=== PATIENT | male | born 1950 | race Caucasian/White ===

== ENCOUNTER 2018-06-24 05:53 | Observation (INO) | payer OTHER ==
[2018-06-23 08:37] LABS: BASOPHILS % 0.7 % (0.0-1.0); EOSINOPHILS # (AUTO) 0.2 (0.0-0.4); EOSINOPHILS % 4.9 % (0.0-6.0); HEMOGLOBIN 15.2 g/dL (14.0-18.0); MEAN CORPUSCULAR HEMOGLOBIN 31.9 pg (28-32); MEAN CORPUSCULAR VOLUME 96.6 fL (81-99); MONOCYTES # (AUTO) 0.4 (0.2-0.8); MONOCYTES % 9.3 % (4.4-11.3); NEUTROPHILS # (AUTO) 2.5 (2.1-6.9); NEUTROPHILS % 61.1 % (38.7-80.0); PLATELET COUNT 190 x10e3/uL (140-360); RED BLOOD COUNT 4.76 x10e6/uL (4.3-5.7); RED CELL DISTRIBUTION WIDTH 12.1 % (11.7-14.4)
[2018-06-23 08:47] LABS: INR 0.87; PROTHROMBIN TIME 12.6 seconds (11.9-14.5)
[2018-06-23 08:48] LABS: PARTIAL THROMBOPLASTIN TIME 28.8 seconds (23.8-35.5)
--- NOTE | 2018-06-23 08:49 | Diagnostic Imaging Report ---
PROCEDURE: X-RAY CHEST, TWO VIEWS COMPARISON: None. INDICATIONS: PRE OPERATIVE CHEST X-RAY FOR NECK SURGERY FINDINGS: LUNGS: No consolidations or edema. PLEURA: No effusions or pneumothorax. HEART \T\ MEDIASTINUM: The heart is within normal size-limits. BONES \T\ SOFT TISSUES: No acute findings. [place] screws overlie the right humeral head. Anterior compression plate with screws overlying the lower cervical spine. Mild degenerative changes of the lower thoracic spine. CONCLUSION: No acute thoracic abnormality. Raf Russell D.O. Dictated by: Raf Russell D.O. on 06/23/2018 at 8:57 Electronically approved by: Raf Russell D.O. on 06/23/2018 at 8:57
[2018-06-23 08:54] LABS: ANION GAP 15.4 mmol/L (8-16); BLOOD UREA NITROGEN 12 mg/dL (7-26); BUN/CREATININE RATIO 14 (6-25); CALCIUM 9.9 mg/dL (8.4-10.2); CARBON DIOXIDE 27 mmol/L (22-29); CHLORIDE 108 mmol/L (98-107); CREATININE, SERUM 0.86 mg/dL (0.72-1.25); EST GLOMERULAR FILTRATION RATE > 60 ML/MIN (60-); GLUCOSE 115 mg/dL (74-118); SODIUM 145 mmol/L (136-145)
[2018-06-23 08:57] LABS: POTASSIUM 5.4 mmol/L (3.5-5.1)
[~2018-06-24] VITALS: Ht 177.8 cm; Wt 99.3 kg
[~2018-06-24 05:53] MED LIST: CELEBREX200 MG; FOLIC ACID1 MG PO; VITAMIN D400 UNIT PO
[2018-06-24] MEDS ORDERED: CEFAZOLIN SOD 1 GM VIAL ONE (06:31)
[2018-06-24] MEDS ORDERED: THROMBIN FOR SOLN 5,000 UNIT VIAL ONE (07:30)
[2018-06-24] MEDS ORDERED: BUPIVACAINE 0.5%/EPI 30 ML SDV INJ ONE (07:30)
[2018-06-24] MEDS ORDERED: GELATIN SPONGE 12-7MM ONE (07:30)
[2018-06-24] MEDS ORDERED: BACITRACIN 50,000 UNIT VIAL ONE (07:31)
[2018-06-24] MEDS ORDERED: ACETAMINOPHEN 1000 MG/100 ML 100 ML IV ONE (07:33)
[2018-06-24] MEDS ORDERED: LIDOCAINE HCL (LTA) 4 ML SOLN ONE (07:33)
[2018-06-24] MEDS ORDERED: CARISOPRODOL 350 MG TAB PO PRN (09:30)
[2018-06-24] MEDS ORDERED: ACETAMINOPHEN 325 MG TAB PO PRN (09:30)
[2018-06-24] MEDS ORDERED: PROMETHAZINE HCL (IM) 25 MG/ML VIAL IM PRN (09:30)
[2018-06-24] MEDS ORDERED: MORPHINE SULFATE 5 MG/ML VIAL IM PRN (09:30)
[2018-06-24] MEDS ORDERED: MAGNESIUM/ALUMINUM/SIMETHICONE 30 ML UDC PO PRN (09:30)
[2018-06-24] MEDS ORDERED: HYDROMORPHONE 2MG/ML 2 MG/ML ML IV PRN (09:30)
[2018-06-24] MEDS ORDERED: ZOLPIDEM TARTRATE 5 MG TAB PO PRN (09:30)
[2018-06-24] MEDS ORDERED: ONDANSETRON HCL INJ 2 MG/ML VIAL IV PRN (09:30)
[2018-06-24] MEDS ORDERED: FENTANYL CITRATE/PF 100MCG/2 ML INJ ONE ×2 (09:47→18:20)
[2018-06-24 10:35] VITALS: BP 125/87
--- NOTE | 2018-06-24 10:35 | Operative Report ---
DATE OF PROCEDURE: June 24, 2018 PREOPERATIVE DIAGNOSIS: C4-5 disk herniation and spondylosis above the level of previous fusion, M50.121. POSTOPERATIVE DIAGNOSIS: C4-5 disk herniation and spondylosis above the level of previous fusion, M50.121. PROCEDURES: 1. C4-5 anterior cervical diskectomy and microsurgical osteophyte resection and allograft fusion, 37294. 2. Preparation of MTF cortical cancellous allograft, 98268. 3. C4-5 anterior cervical plating with Synthes ZPN plate, 69470. ANESTHESIA: General. INDICATIONS: The patient is a 67-year-old man who has previously had C5-6 and C6-7 ACDF and plating by la in the distant past. He now presents with C4-5 spondylosis and disk herniation and left foraminal stenosis due to uncinate hypertrophy above the level of the previous fusion symptomatic with left C5 radiculopathy, was taken to the operating room for C4-5 anterior cervical decompression and fusion. DESCRIPTION OF PROCEDURE: After induction of general anesthesia, the patient was placed on the operating table in supine position. The right side of the neck was prepped and draped in sterile fashion. The fluoroscopic C-arm was positioned in cross-table lateral orientation. A transverse incision was created on right side of the neck superimposed on the C4-5 disk space as determined by fluoroscopy. The platysma was divided in line with the incision. The subplatysmal dissection was carried out. An avascular plane of dissection was developed medial to the sternocleidomastoid muscle and was followed medial to the carotid sheath to the anterior border of the cervical spine. The deep cervical fascia was opened. The esophagus was retracted to the left. The attachments of longus colli muscles to the anterolateral aspects of vertebral bodies of C4 and C5 were divided. The anterior longitudinal ligament was resected. Fonda posts were inserted into C4 and C5, and a Fonda distractor was used to distract the disk space. The anterior annulus of the disk was incised with a #11 blade, and the contents of the disk were thoroughly evacuated with angled curettes and pituitary rongeurs. The posterior osteophytes were meticulously drilled with a 2-mm cutting bur on a high-speed drill until they were completely removed. The posterior annulus of the disk, herniated disk material, and the posterior longitudinal ligament were resected layer by layer until the dura was fully exposed and decompressed. The medial aspects of the uncinate processes were resected bilaterally to further expose and decompress the origins of the corresponding nerve roots. After satisfactory decompression had been achieved, the endplates were prepared for fusion. A piece of MTF cortical cancellous allograft measuring 9 mm in height was selected and prepared in saline and loaded onto a Synthes ZPN plate. The construct was then inserted into the C4-5 disk space under distraction and fluoroscopic guidance and tamped in place until the anterior margin of the plate was flushed with the anterior margin of the vertebral bodies. The plate was then secured to the endplates of C4 and C5 with 2 pairs of 14-mm screws. All screws were locked and excellent construct was obtained. The wound was copiously irrigated with bacitracin solution. Meticulous hemostasis was secured. Retractor was removed. The platysma was closed with 3-0 Vicryl sutures. The skin was closed with 4-0 Monocryl sutures in a subcuticular fashion. Steri-Strips and a dressing were applied. The patient was awakened, extubated, and taken to postanesthesia care unit in stable condition. No intraoperative complications were encountered. Estimated blood loss was 20 mL. Job#: [id number]
[2018-06-24 10:59] VITALS: BP 125/87
[2018-06-24] MEDS: OXYCODONE/ACETAMINOPHEN 5-325 1 EACH TABLET PO PRN ×2 (11:45→22:27)
[2018-06-24 11:50] VITALS: BP 137/88
[2018-06-24] MEDS: LACTATED RINGER'S 1,000 ML IV SCH ×2 (12:05→17:45)
[2018-06-24] MEDS ORDERED: CEFAZOLIN SOD 1 GM/D5W 50ML 50 ML IV SCH (14:00)
[2018-06-24] MEDS: CEFAZOLIN SOD 1 GM VIAL IV SCH ×2 (14:48→22:20)
[2018-06-24 16:11] VITALS: BP 125/66
[2018-06-24] MEDS ORDERED: NEOSTIGMINE 5 MG/5ML SYR ONE (17:56)
[2018-06-24] MEDS ORDERED: ONDANSETRON HCL INJ 2 MG/ML VIAL ONE (17:56)
[2018-06-24] MEDS ORDERED: GLYCOPYRROLATE INJ 1MG/ 5 ML SYR ONE (17:56)
[2018-06-24] MEDS ORDERED: SEVOFLURANE INHAL SOLN 250 ML PEN BTL ONE (17:56)
[2018-06-24] MEDS ORDERED: KETOROLAC TROMETHAMINE 30 MG/ML VIAL ONE (17:56)
[2018-06-24] MEDS ORDERED: LIDOCAINE HCL 2% LOCAL INJ 5 ML SDV VIAL INJ ONE (17:56)
[2018-06-24] MEDS ORDERED: ROCURONIUM BROMIDE 10 MG/ML 5ML VIAL ONE (17:56)
[2018-06-24] MEDS ORDERED: PROPOFOL IV EMULSION 10 MG/ML 20 ML VIAL ONE (17:56)
[2018-06-24] MEDS ORDERED: LIDOCAINE HCL 2% JELLY 5 ML TUBE ONE (17:56)
[2018-06-24] MEDS ORDERED: DEXAMETHASONE SOD PHOS INJ 4 MG/ML VIAL ONE (17:56)
[2018-06-24] MEDS ORDERED: MIDAZOLAM HCL 2 MG/2 ML VIAL ONE (18:20)
[2018-06-24 20:00] VITALS: BP 131/65
[2018-06-25] VITALS: BP 121/62
[2018-06-25] MEDS: LACTATED RINGER'S 1,000 ML IV SCH (02:05)
[2018-06-25 04:00] VITALS: BP 122/59
[2018-06-25] MEDS: CEFAZOLIN SOD 1 GM VIAL IV SCH (05:39)
[2018-06-25 08:11] VITALS: BP 137/69
[2018-06-25] MEDS ORDERED: NORCO 7.5-3251 EACH PO (08:11)
--- NOTE | 2018-06-25 08:49 | Diagnostic Imaging Report ---
Cervical spine radiographs- 3 views HISTORY: Status post surgery. COMPARISON: MRI cervical spine 07/22/2012. FINDINGS: There are post surgical changes related to cervical fusion from C4-C5 with intervertebral body graft, and anterior plate and bilateral screws. There is additional fixation from C5-C7 with anterior plate and bilateral screw construct. Hardware appears grossly intact. Alignment is maintained. No evidence of fracture. Multilevel degenerative disc and facet degenerative changes. IMPRESSION: Post surgical changes status post cervical spin fixation as above. Intact hardware with unremarkable alignment. Signed by: Dr. Logan Hoff MD on 06/25/2018 8:46 AM
[2018-06-25 09:38] VITALS: BP 137/69
[2018-06-25] MEDS: OXYCODONE/ACETAMINOPHEN 5-325 1 EACH TABLET PO PRN (10:00)
[2018-06-25] MEDS ORDERED: INFLUENZA VIRUS VAC SPLIT INJ 0.5 ML SYR IM NR (10:00)
--- OUTSIDE RECORDS SUMMARY | 2018-06-29 12:54 | XMS REPORT ---
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
--- OUTSIDE RECORDS SUMMARY | 2018-06-29 12:54 | XMS REPORT ---
Author Author Radha Cagle [facility] eClinical[employer] Address Unknown Phone Unavailable Care Team Providers Care Costumed Character Entertainer Name Role Phone Radha Cagle Unavailable Encounters Encounter Location Date URINE [facility] Aug 04, 2013 pre op clearance [facility] February 15, 2014 NV/TDAP [facility] February 13, 2014 knee [facility] Jul 18, 2013 Follow-Up [facility] Aug 25, 2013 Test results [facility] Aug 29, 2013 Problems Problem Type Condition ICD-9 Code Onset Dates Condition Status Problem GERD (gastroesophageal reflux disease) 530.81 Active Problem Polymyalgia rheumatica 725 Active Problem 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 02/2014February 15, 2014 Depression Screening: . 02/2014February 15, 2014 Flu Vaccine: . 2012February 15, 2014 Last Bone Density: . 2011February 15, 2014 Last Colonoscopy: . 01/2014February 15, 2014 children . 2 February 15, 2014 Tobacco Use: . Are you a: current smoker rare- 2-4 cig/wk February 15, 2014 Marital Status: . Tia February 15, 2014 Do you drink alcohol? . 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
--- OUTSIDE RECORDS SUMMARY | 2018-06-29 12:54 | XMS REPORT ---
Author Author Imani Alexandre [facility] [place] eClinicalWorks Address Unknown Phone Unavailable Care Team Providers Care Caddymaster Name Role Phone Imani Alexandre CP Unavailable Allergies, Adverse Reactions, Alerts Substance Reaction Event Type Codeine Sulfate nausea Drug Allergy Encounters Encounter Location Date URINE [facility] Aug 04, 2013 pre op clearance [facility] February 15, 2014 NV/TDAP [facility] February 13, 2014 left shoulder pain [facility] Jul 31, 2015 knee [facility] Jul 18, 2013 Follow-Up [facility] Aug 25, 2013 Test results [facility] Aug 29, 2013 Problems Problem Type Condition ICD-9 Code Onset Dates Condition Status Problem GERD (gastroesophageal reflux disease) 530.81 Active Problem Polymyalgia rheumatica 725 Active Problem 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 Assessment Shoulder pain, left M25.512 Active Assessment Leg wound, left S81.802A Active Problem Nicotine abuse 305.1 Active Assessment Shoulder pain, right M25.511 Active Medications Medication Code System Code Instructions Start Date End Date Status [facility]osage [facility] [address]-37 200 MG Orally Once a day Active 1 capsule Ambien [facility] [address]-50 10 mg Orally Once a day PRN Aug 04, 2013 Active 1 tablet at bedtime as needed Methotrexate [facility] [address]-10 2.5 MG Orally Three times a Week Active 1 tablet Folic Acid [facility] [address]-53 400 MCG Orally Once a day Active 1 tablet Vitamin D [facility] [address]-17 2000 UNIT Orally Active as directed Tramadol & Dietary Manage Prod Unknown 0 50 mg Orally twice a day (bid) Active 1 capsule Ibuprofen [facility] [address]-82 800 MG Orally as needed (prn) Sep 29, 2015 Active 1 tablet Social History Social History Element Qualifiers Date Reported Fall Risk: . 02/2014Jul 31, 2015 Depression Screening: . 02/2014Jul 31, 2015 Flu Vaccine: . 2014Jul 31, 2015 Last Bone Density: . 2011Jul 31, 2015 Last Colonoscopy: . 01/2014Jul 31, 2015 children . 2 Jul 31, 2015 Tobacco Use: . Are you a: current smoker rare- 2-4 cig/wk Jul 31, 2015 Marital Status: . Tia Jul 31, 2015 Do you drink alcohol? . 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, 2015 Family history Qualifier Description Comment Date Reported Maternal Grandmother Comment not available Jul 31, 2015 Paternal Grandmother Comment not available Jul 31, 2015 Siblings Comment not available Jul 31, 2015 Maternal Grandfather Comment not available Jul 31, 2015 Children Comment not available Jul 31, 2015 Father alive diabetes, hypertension Jul 31, 2015 Paternal Grandfather Comment not available Jul 31, 2015 Mother Comment not available Jul 31, 2015 Other: Comment not available Jul 31, 2015 Vital Signs Date/Time: Jul 31, 2015 Blood Pressure Diastolic 70 mm Hg Blood Pressure Systolic 118 mm Hg Height 70 in Cardiac Monitoring Heart Rate 70 /min Results X ray : Shoulder, right Summary Purpose eClinicalWorks Submission
--- OUTSIDE RECORDS SUMMARY | 2018-06-29 12:54 | XMS REPORT ---
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 Problem GERD (gastroesophageal reflux disease) 530.81 Active Problem Polymyalgia rheumatica 725 Active Problem 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 Assessment Left knee pain 719.46 Active Assessment Ingram's cyst of knee 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.51 Active Problem Nicotine abuse 305.1 Active Assessment Leg edema, left 782.3 Active Medications Medication Code System Code Instructions Start Date End Date Status Dosage Ibuprofen [facility] [address]-09 800 MG Orally as needed (prn) Active 1 tablet Vitamin D [facility] [address]-35 2000 UNIT Orally Active as directed Ketorolac Tromethamine [facility] [address]-35 0.4 % Ophthalmic three times a day (tid) Active 1 drop Valacyclovir HCl [facility] [address]-12 500 mg Orally every 12 hrs as needed Jul 18, 2013 January 14, 2014 Active 2 tablets Methotrexate [facility] [address]-17 2.5 MG Orally Three times a Week Active 1 tablet Social History Social History Element Qualifiers Date Reported children . 2 Jul 18, 2013 Tobacco Use: . Are you a: current smoker rare- 2-4 cig/wk Jul 18, 2013 Marital Status: . Tia Jul 18, 2013 Do you drink alcohol? . 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
--- OUTSIDE RECORDS SUMMARY | 2018-06-29 12:54 | XMS REPORT ---
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 Assessment Gastroesophageal reflux disease, esophagitis presence not specified K21.9 Active Assessment Flu-like symptoms R68.89 Active Problem Osteoarthritis, unspecified osteoarthritis type, unspecified site M19.90 Active Problem 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 Problem Uveitis H20.9 Active Problem Tobacco use Z72.0 Active Assessment Polymyalgia rheumatica M35.3 Active Problem Polymyalgia rheumatica M35.3 Active Problem 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 Medications Medication Code System Code Instructions Start Date End Date Status Dosage Celebrex [facility] [address]-53 200 MG Orally Once a day Active 1 capsule Folic Acid [facility] [address]-05 400 MCG Orally Once a day Active 1 tablet Methotrexate [facility] [address]-26 2.5 MG Orally Three times a Week Active 1 tablet Ambien [facility] [address]-91 10 mg Orally Once a day PRN Aug 04, 2013 Active 1 tablet at bedtime as needed ProAir HFA [facility] [address]-75 108 (90 Base) MCG/ACT Inhalation every 4 hrs Jun 09, 2016 Active 2 puffs as needed Bromfed DM [facility] [address]-68 30-2-10 MG/5ML Orally every 4-6 hrs PRN January 22, 2017 January 29, 2017 Active 10 ml as needed Vitamin D [facility] [address]-27 2000 UNIT Orally Active as directed Tramadol & Dietary Manage Prod NDC 0 50 mg Orally twice a day (bid) Active 1 capsule Vital Signs Date/Time: January 22, 2017 BMI 31.13 Index Weight 217 lbs Height 70 in Temperature 98.3 F Cardiac Monitoring Heart Rate 66 /min Blood Pressure Diastolic 70 mm Hg Blood Pressure Systolic 110 mm Hg Results Name Result Date Reference Range Unit Abnormality Flag RAPID FLU ----Result negative [id number] Summary Purpose eClinicalWorks Submission
--- OUTSIDE RECORDS SUMMARY | 2018-06-29 12:54 | XMS REPORT ---
Author Author Amanda Manrique [facility] eClinicalWorks Address Unknown Phone Unavailable Care Team Providers Care Control Room Operator Name Role Phone Amanda Manrique CP Unavailable Allergies, Adverse Reactions, Alerts Substance Reaction Event Type Codeine Sulfate nausea Drug Allergy Encounters Encounter Location Date knee [facility] Jul 18, 2013 Follow-Up [facility] Aug 25, 2013 Problems Problem Type Condition ICD-9 Code Onset Dates Condition Status Problem GERD (gastroesophageal reflux disease) 530.81 Active Problem Polymyalgia rheumatica 725 Active Problem 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 [address]-05 10 mg Orally Once a day PRN Aug 04, 2013 Active 1 tablet at bedtime as needed Valacyclovir HCl [facility] [address]-56 500 mg Orally every 12 hrs as needed Jul 18, 2013 January 14, 2014 Active [address] [facility] [address]-96 800 MG Orally as needed (prn) Active [address] [facility] [address]-50 2000 UNIT Orally Active as directed Methotrexate [facility] [address]-94 2.5 MG Orally Three times a Week Active 1 tablet Social History Social History Element Qualifiers Date Reported children . 2 Aug 25, 2013 Tobacco Use: . Are you a: current smoker rare- 2-4 cig/wk Aug 25, 2013 Marital Status: . Tia Aug 25, 2013 Do you drink alcohol? . 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
--- OUTSIDE RECORDS SUMMARY | 2018-06-29 12:54 | XMS REPORT ---
Author Stephane Blair Organization eClinicalWorks Address Unknown Phone Unavailable Care Team Providers Care Communications Director Name Role Phone Stephane Cuellar CP Unavailable Allergies, Adverse Reactions, Alerts Substance Reaction Event Type Codeine Sulfate nausea Drug Allergy Encounters Encounter Location Date URINE [facility] Aug 04, 2013 knee [facility] Jul 18, 2013 Follow-Up [facility] Aug 25, 2013 Test results [facility] Aug 29, 2013 Problems Problem Type Condition ICD-9 Code Onset Dates Condition Status Problem GERD (gastroesophageal reflux disease) 530.81 Active Problem Polymyalgia rheumatica 725 Active Problem 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 Assessment Insomnia 780.52 Active Problem Nicotine abuse 305.1 Active Assessment UTI (urinary tract infection) 599.0 Active Medications Medication Code System Code Instructions Start Date End Date Status Dosage Tramadol & Dietary Manage Prod [facility] 96850 50 mg Orally twice a day (bid) Active 1 capsule Ambien [facility] [address]-47 10 mg Orally Once a day PRN Aug 04, 2013 Active 1 tablet at bedtime as needed Valacyclovir HCl [facility] [address]-01 500 mg Orally every 12 hrs as needed Jul 18, 2013 January 14, 2014 Active 2 tablets Ibuprofen [facility] [address]-45 800 MG Orally as needed (prn) Active 1 tablet Vitamin D [facility] [address]-07 2000 UNIT Orally Active as directed Methotrexate [facility] [address]-77 2.5 MG Orally Three times a Week Active 1 tablet Uribel [facility] [address]-82 118 MG Orally Four times a day Aug 04, 2013 Active 1 capsule Levaquin [facility] [address]-33 500 mg Orally Once a day Aug 04, 2013 Aug 14, 2013 Active 1 tablet Social History Social History Element Qualifiers Date Reported children . 2 Aug 04, 2013 Tobacco Use: . Are you a: current smoker rare- 2-4 cig/wk Aug 04, 2013 Marital Status: . Tia Aug 04, 2013 Do you drink alcohol? . 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
--- OUTSIDE RECORDS SUMMARY | 2018-06-29 12:54 | XMS REPORT ---
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 Problem 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 Problem Polymyalgia rheumatica M35.3 Active Problem Osteoarthritis, unspecified osteoarthritis type, unspecified site M19.90 Active Medications Medication Code System Code Instructions Start Date End Date Status Dosage Methotrexate [facility] 81946188559 2.5 MG Orally Three times a Week Active 1 tablet Folic Acid [facility] 07999224685 400 MCG Orally Once a day Active 1 tablet Celebrex [facility] 63913306077 200 MG Orally Once a day Active 1 capsule Omeprazole [facility] 53843235403 40 mg Orally Once a day Active 1 capsule ProAir HFA [facility] 77534379761 108 (90 Base) MCG/ACT Inhalation every 4 hrs Jun 09, 2016 Active 2 puffs as needed Tramadol & Dietary Manage Prod NDC 0 50 mg Orally twice a day (bid) Active 1 capsule Ambien [facility] 61891587979 10 mg Orally Once a day PRN Aug 04, 2013 Active 1 tablet at bedtime as needed Vitamin D [place] 79795582641 2000 UNIT Orally Active as directed Bromfed DM [facility] 01986131234 30-2-10 MG/5ML Orally Q6 PRN Jul 30, 2017 Aug 06, 2017 Active 10 ml as needed Vital Signs Date/Time: Jul 30, 2017 BMI 31.28 Index Weight 218 lbs Height 70 in Temperature 98.2 F Cardiac Monitoring Heart Rate 86 /min Blood Pressure Diastolic 80 mm Hg Blood Pressure Systolic 110 mm Hg Results Name Result Date Reference Range Unit Abnormality Flag RAPID FLU ----Result negative [id number] Summary Purpose eClinicalWorks Submission
--- OUTSIDE RECORDS SUMMARY | 2018-06-29 12:54 | XMS REPORT ---
Author Author Imani Alexandre [facility] eClinicalWorks Address Unknown Phone Unavailable Care Team Providers Care Cocktail Server Name Role Phone Imani Alexandre Unavailable Allergies, Adverse Reactions, Alerts Substance Reaction Event Type Codeine Sulfate nausea Drug Allergy Problems Problem Type Condition Code Onset Dates Condition Status Assessment Epigastric pain R10.13 Active Assessment Hyperlipidemia, unspecified hyperlipidemia type E78.5 Active Problem Uveitis H20.9 Active Problem Osteoarthritis, unspecified osteoarthritis type, unspecified site M19.90 Active Problem Hyperlipidemia, unspecified hyperlipidemia type E78.5 Active Problem 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 Problem Tobacco use Z72.0 Active Problem 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 Problem Polymyalgia rheumatica M35.3 Active Medications Medication Code System Code Instructions Start Date End Date Status Dosage Omeprazole [facility] [address]-94 40 MG Orally Once a day April 13, 2017 Active 1 capsule Vitamin D [facility] [address]-94 2000 UNIT Orally Active as directed Methotrexate [facility] [address]-37 2.5 MG Orally Three times a Week Active 1 tablet ProAir HFA [facility] [address]-08 108 (90 Base) MCG/ACT Inhalation every 4 hrs Jun 09, 2016 Active 2 puffs as needed Ambien [facility] [address]-96 10 mg Orally Once a day PRN Aug 04, 2013 Active 1 tablet at bedtime as needed Tramadol & Dietary Manage Prod NDC 0 50 mg Orally twice a day (bid) Active 1 capsule Folic Acid [facility] [address]-85 400 MCG Orally Once a day Active 1 tablet Celebrex [facility] [address]-21 200 MG Orally Once a day Active 1 capsule Vital Signs Date/Time: April 13, 2017 BMI 32.57 Index Weight 227 lbs Height 70 in Cardiac Monitoring Heart Rate 62 /min Blood Pressure Diastolic 78 mm Hg Blood Pressure Systolic 130 mm Hg Results Name Result Date Reference Range Unit Abnormality Flag CBC With Differential/Platelet ----Lymphs 25 [id number] % ----Neutrophils 62 41741720 % ----Baso (Absolute) 0.0 69634186 0.0-0.2 x10E3/uL ----Hemoglobin 14.9 77227819 12.6-17.7 g/dL ----Eos (Absolute) 0.3 90707546 0.0-0.4 x10E3/uL ----Hematocrit 42.5 39898436 37.5-51.0 % ----Monocytes(Absolute) 0.4 36682225 0.1-0.9 x10E3/uL ----MCV 89 14037941 79-97 fL ----Lymphs (Absolute) 1.4 16632195 0.7-3.1 x10E3/uL ----MCH 31.3 68232227 26.6-33.0 pg ----Neutrophils (Absolute) 3.4 07031805 1.4-7.0 x10E3/uL ----MCHC 35.1 45750585 31.5-35.7 g/dL ----Immature Granulocytes 0 85982659 % ----Basos 0 67626913 % ----RDW 13.0 29255884 12.3-15.4 % ----Immature Grans (Abs) 0.0 80488692 0.0-0.1 x10E3/uL ----WBC 5.6 22400819 3.4-10.8 x10E3/uL ----Platelets 213 39439848 150-379 x10E3/uL ----Eos 5 94358816 % ----RBC 4.76 86064710 4.14-5.80 x10E6/uL ----Monocytes 8 56076135 % Lipase, Serum ----Lipase, Serum 29 89706216 0-59 U/L Comp. Metabolic Panel (14) ----A/G Ratio 1.8 75916600 1.2-2.2 ----Globulin, Total 2.3 71166870 1.5-4.5 g/dL ----Alkaline Phosphatase, S 83 82361427 39-117 IU/L ----Bilirubin, Total 0.4 23932139 0.0-1.2 mg/dL ----Chloride, Serum 104 20170413 96-106 mmol/L ----ALT (SGPT) 44 20170413 0-44 IU/L ----Potassium, Serum 4.7 40436500 3.5-5.2 mmol/L ----AST (SGOT) 28 20170413 0-40 IU/L ----Sodium, Serum 143 52218061 134-144 mmol/L ----BUN/Creatinine Ratio 16 20170413 10-24 ----eGFR If Africn Am 104 20170413 >59 mL/min/1.73 ----Calcium, Serum 9.0 54617132 8.6-10.2 mg/dL ----Carbon Dioxide, Total 24 20170413 18-29 mmol/L ----Albumin, Serum 4.2 69458802 3.6-4.8 g/dL ----Protein, Total, Serum 6.5 95000942 6.0-8.5 g/dL ----Glucose, Serum 94 44350069 65-99 mg/dL ----BUN 14 20170413 8-27 mg/dL ----Creatinine, Serum 0.89 64277563 0.76-1.27 mg/dL ----eGFR If NonAfricn Am 90 91317559 >59 mL/min/1.73 H pylori urea Breath Test (Adult) ----H. pylori Breath Test Negative [id number] Negative Amylase, Serum ----Amylase, Serum 40 56930570 31-124 U/L Lipid Panel ----HDL Cholesterol 37 15645860 >39 mg/dL L ----Triglycerides 129 20170413 0-149 mg/dL ----LDL Cholesterol Calc 132 27890265 0-99 mg/dL H ----VLDL Cholesterol James 26 94867851 5-40 mg/dL ----Cholesterol, Total 195 25794970 100-199 mg/dL Summary Purpose eClinicalWorks Submission
--- OUTSIDE RECORDS SUMMARY | 2018-06-29 12:54 | XMS REPORT ---
Author Author Alejandro Melendez Organization eClinicalWorks Address Unknown Phone Unavailable Care Team Providers Care Stave Bolt Equalizer Name Role Phone Alejandro Melendez CP Unavailable Allergies No Known Allergies Problems Problem Type Condition Code Onset Dates Condition Status Problem Left shoulder pain M25.512 Active Problem Primary osteoarthritis of left knee M17.12 Active Problem Neck pain M54.2 Active Assessment Neck pain M54.2 Active Problem Uveitis H20.9 Active Problem Polymyalgia rheumatica M35.3 Active Medications No Known Medications Results No Known Results Summary Purpose eClinicalWorks Submission
--- OUTSIDE RECORDS SUMMARY | 2018-06-29 12:54 | XMS REPORT | Continuity of Care Document ---
Author Author [facility] Interface Address Unknown Phone Unavailable Problems Problem Status Onset Date Classification Date Reported Comments Source Cough Active Diagnosis 01/24/2017 [facility] Seronegative spondyloarthropathy Active Problem 07/31/2017 [facility] Gastroesophageal reflux disease, esophagitis presence not specified Active Diagnosis 01/24/2017 [facility] Flu-like symptoms Active Diagnosis 07/31/2017 [facility] Osteoarthritis, unspecified osteoarthritis type, unspecified site Active Problem 07/31/2017 [facility] Tobacco use Active Problem 07/31/2017 [facility] 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 Active Problem 07/31/2017 [facility] Hyperlipidemia, unspecified hyperlipidemia type Active Problem 07/31/2017 [facility] Epigastric pain Active Diagnosis 04/16/2017 [facility] HSV-1 infection Active Problem 08/02/2015 [facility] GERD Active Problem 08/02/2015 [facility] Polymyalgia rheumatica Active Problem 08/02/2015 [facility] Left knee pain Active Diagnosis 07/26/2013 [facility] Ingram's cyst of knee Active Diagnosis 07/26/2013 [facility] Nicotine abuse Active Problem 08/02/2015 [facility] Leg edema, left Active Diagnosis 07/26/2013 [facility] Primary osteoarthritis of left knee Active Problem 05/27/2018 Simone Melendez Uveitis Active Problem 05/27/2018 [facility],Simone Melendez Left shoulder pain Active Problem 05/27/2018 Simone Melendez Polymyalgia rheumatica Active Problem 05/27/2018 [facility],Simone Melendez Neck pain Active Problem 05/27/2018 Simone Melendez Elevated PSA Active Diagnosis 08/30/2013 [facility] Need for tloxtzwupu-vizykkm-ajccngrps vaccine Active Diagnosis 05/02/2014 [facility] UTI Active Diagnosis 12/20/2013 [facility] Shoulder pain, left Active Diagnosis 08/02/2015 [facility] Leg wound, left Active Diagnosis 08/02/2015 [facility] Shoulder pain, right Active Diagnosis 08/02/2015 [facility] Insomnia Active Diagnosis 12/20/2013 [facility] Other specified pre-operative examination Active Diagnosis 02/22/2014 [facility] Pure hypercholesterolemia Active Diagnosis 09/25/2016 [facility] Hyperkalemia Active Diagnosis 09/25/2016 [facility] Routine general medical examination at a health care facility Active Diagnosis 09/11/2016 [facility] Bronchitis Active Diagnosis 06/13/2016 [facility] Shortness of breath Active Diagnosis 06/13/2016 [facility] LT SHOULDER Active [facility] LT SHOULDER/TENDONITIS Active [facility] S/P SHOULDER Active [facility] Medications Medication Details Route Status Patient Instructions Ordering Provider Order Date Source Bromfed DM 10 ml as needed Orally Active 30-2-10 MG/5ML Orally Q6 PRN Samson 07/30/2017 [facility] Omeprazole 1 capsule Orally Active 40 MG Orally Once a day [place] 04/13/2017 [facility] Bromfed DM 10 ml as needed Orally Active 30-2-10 MG/5ML Orally every 4-6 hrs PRN Samson 01/22/2017 [facility] ProAir HFA 2 puffs as needed Inhalation Active 108 (90 Base) MCG/ACT Inhalation every 4 hrs Baldomero 06/09/2016 [facility] ProAir HFA 2 puffs as needed Inhalation Active 108 (90 Base) MCG/ACT Inhalation every 4 hrs Samson 06/09/2016 [facility] Bromfed DM 10 ml as needed Orally Active 30-2-10 MG/5ML Orally every 6 hrs Baldomero 06/09/2016 [facility] Levaquin 1 tablet Orally Active 500 mg Orally Once a day Baldomero 06/09/2016 [facility] Medrol (Anthony) as directed Orally Active 4 mg Orally as directed [place] 06/09/2016 [facility] Ibuprofen 1 tablet Orally Active 800 MG Orally as needed (prn) Baldomero 09/29/2015 [facility] Ambien 1 tablet at bedtime as needed Orally Active 10 mg Orally Once a day PRN [place] 08/04/2013 [facility] Ambien 1 tablet at bedtime as needed Orally Active 10 mg Orally Once a day PRN Samson 08/04/2013 [facility] Uribel 1 capsule Orally Active 118 MG Orally Four times a day Polo 08/04/2013 [facility] Levaquin 1 tablet Orally Active 500 mg Orally Once a day Polo 08/04/2013 [facility] Valacyclovir HCl 2 tablets Orally Active 500 mg Orally every 12 hrs as needed Polo 07/18/2013 [facility] Celebrex 1 capsule Orally Active 200 MG Orally Once a day Baldomero [facility] Folic Acid 1 tablet Orally Active 400 MCG Orally Once a day [place] [facility] Methotrexate 1 tablet Orally Active 2.5 MG Orally Three times a Week Baldomero [facility] Vitamin D as directed Orally Active 2000 UNIT Orally Baldomero [facility] Tramadol & Dietary Manage Prod 1 capsule Orally Active 50 mg Orally twice a day (bid) Samson [facility] Methotrexate 1 tablet Orally Active 2.5 MG Orally Three times a Week Samson [facility] Omeprazole 1 capsule Orally Active 40 mg Orally Once a day Samson [facility] Ibuprofen 1 tablet Orally Active 800 MG Orally as needed (prn) Darryn [facility] Ketorolac Tromethamine 1 drop Ophthalmic Active 0.4 % Ophthalmic three times a day (tid) Gloria [facility] Celebrex TAKE 1 CAPSULE BY MOUTH ONCE A DAY FOR 90 DAYS NA Active 200 MG [facility]iko [facility] Ibuprofen 1 tablet as needed Orally Active 200 MG Orally PRN Kiko Melendez Folic Acid 1 tablet Orally Active 400 MCG Orally Once a day [facility]iko [facility] Vitamin D as directed Orally Active 2000 UNIT Orally Kiko [facility],Simone Melendez Tramadol & Dietary Manage Prod 1 capsule Orally Active 50 mg Orally twice a day (bid) Polo [facility] Tramadol & Dietary Manage Prod 1 capsule Orally Active 50 mg Orally twice a day (bid) Baldomero [facility] Allergies, Adverse Reactions, Alerts Substance Category Reaction Severity Reaction type Status Date Reported Comments Source Codeine Sulfate Adverse Reaction Info Not Available Adverse Reaction Active 11/02/2017 Simone Melendez Immunizations Immunization Date Given Site Status Last Updated Comments Source Influenza 11/02/2017 completed Simone Melendez TDAP VACCINE >11 02/13/2014 completed [facility] Results Order Name Results Value Reference Range Date Interpretation Comments Source Vital Signs Vital Sign Value Date Comments Source Weight 219.4 11/02/2017 Simone Melendez Height 69 11/02/2017 Simone Melendez Temperature Oral (F) 97.1 F 11/02/2017 Simone Melendez Heart Rate 68 11/02/2017 Simone Melendez Diastolic (mm Hg) 76 11/02/2017 Simone Melendez Systolic (mm Hg) 102 11/02/2017 Simone Melendez Weight 218 07/30/2017 [facility] Height 70 07/30/2017 [facility] Temperature Oral (F) 98.2 F 07/30/2017 [facility] Heart Rate 86 07/30/2017 [facility] Diastolic (mm Hg) 80 07/30/2017 [facility] Systolic (mm Hg) 110 07/30/2017 [facility] Weight 227 04/13/2017 [facility] Height 70 04/13/2017 [facility] Heart Rate 62 04/13/2017 [facility] Diastolic (mm Hg) 78 04/13/2017 [facility] Systolic (mm Hg) 130 04/13/2017 [facility] Weight 217 01/22/2017 [facility] Height 70 01/22/2017 [facility] Temperature Oral (F) 98.3 F 01/22/2017 [facility] Heart Rate 66 01/22/2017 [facility] Diastolic (mm Hg) 70 01/22/2017 [facility] Systolic (mm Hg) 110 01/22/2017 [facility] Weight 223 09/22/2016 [facility] Height 70 09/22/2016 [facility] Heart Rate 69 09/22/2016 [facility] Diastolic (mm Hg) 70 09/22/2016 [facility] Systolic (mm Hg) 118 09/22/2016 [facility] Weight 214 09/05/2016 [facility] Height 70 09/05/2016 [facility] Heart Rate 68 09/05/2016 [facility] Diastolic (mm Hg) 77 09/05/2016 [facility] Systolic (mm Hg) 108 09/05/2016 [facility] Weight 219 06/09/2016 [facility] Height 70 06/09/2016 [facility] Heart Rate 77 06/09/2016 [facility] Diastolic (mm Hg) 72 06/09/2016 [facility] Systolic (mm Hg) 118 06/09/2016 [facility] Diastolic (mm Hg) 70 07/31/2015 [facility] Systolic (mm Hg) 118 07/31/2015 [facility] Height 70 07/31/2015 [facility] Heart Rate 70 07/31/2015 [facility] Weight 200 02/15/2014 [facility] Height 70 02/15/2014 [facility] Temperature Oral (F) 98.7 F 02/15/2014 [facility] Heart Rate 64 02/15/2014 [facility] Diastolic (mm Hg) 75 02/15/2014 [facility] Systolic (mm Hg) 112 02/15/2014 [facility] Weight 186 08/25/2013 [facility] Height 70 08/25/2013 [facility] Heart Rate 68 08/25/2013 [facility] Diastolic (mm Hg) 74 08/25/2013 [facility] Systolic (mm Hg) 116 08/25/2013 [facility] Weight 195 08/04/2013 [facility] Height 70 08/04/2013 [facility] Heart Rate 70 08/04/2013 [facility] Diastolic (mm Hg) 70 08/04/2013 [facility] Systolic (mm Hg) 114 08/04/2013 [facility] Weight 195 07/18/2013 [facility] Height 70 07/18/2013 [facility] Heart Rate 68 07/18/2013 [facility] Diastolic (mm Hg) 68 07/18/2013 [facility] Systolic (mm Hg) 110 07/18/2013 [facility] Encounters Location Location Details Encounter Type Encounter Number Reason For Visit Attending Provider ADM Date DC Date Status Source [facility] knee [id number] 07/18/2013 07/18/2013 [facility] knee [id number] 07/18/2013 07/18/2013 [facility] knee [id number] 07/18/2013 07/18/2013 [facility] knee [id number] 07/18/2013 07/18/2013 [facility] knee [id number] 07/18/2013 07/18/2013 [facility] knee [id number] 07/18/2013 07/18/2013 [facility] knee [id number] 07/18/2013 07/18/2013 [facility] knee [id number] 07/18/2013 07/18/2013 [facility] knee [id number] 07/18/2013 07/18/2013 [facility] knee [id number] 07/18/2013 07/18/2013 [facility] URINE [id number] 08/04/2013 08/04/2013 [facility] URINE [id number] 08/04/2013 08/04/2013 [facility] URINE [id number] 08/04/2013 08/04/2013 [facility] URINE [id number] 08/04/2013 08/04/2013 [facility] URINE [id number] 08/04/2013 08/04/2013 [facility] URINE [id number] 08/04/2013 08/04/2013 [facility] URINE [id number] 08/04/2013 08/04/2013 [facility] Follow-Up [id number] 08/25/2013 08/25/2013 [facility] Follow-Up [id number] 08/25/2013 08/25/2013 [facility] Follow-Up [id number] 08/25/2013 08/25/2013 [facility] Follow-Up [id number] 08/25/2013 08/25/2013 [facility] Follow-Up [id number] 08/25/2013 08/25/2013 [facility] Follow-Up [id number] 08/25/2013 08/25/2013 [facility] Follow-Up [id number] 08/25/2013 08/25/2013 [facility] Follow-Up [id number] 08/25/2013 08/25/2013 [facility] Follow-Up [id number] 08/25/2013 08/25/2013 [facility] Test results [id number] 08/29/2013 08/29/2013 [facility] Test results [id number] 08/29/2013 08/29/2013 [facility] Test results [id number] 08/29/2013 08/29/2013 [facility] Test results [id number] 08/29/2013 08/29/2013 [facility] Test results [id number] 08/29/2013 08/29/2013 [facility] Test results [id number] 08/29/2013 08/29/2013 [facility] Test results [id number] 08/29/2013 08/29/2013 [facility] Test results [id number] 08/29/2013 08/29/2013 [facility] NV/TDAP [id number] 02/13/2014 02/13/2014 [facility] [place]/TDAP [id number] 02/13/2014 02/13/2014 [facility] [place]/TDAP [id number] 02/13/2014 02/13/2014 [facility] [place]/TDAP [id number] 02/13/2014 02/13/2014 [facility] [place]/TDAP [id number] 02/13/2014 02/13/2014 [facility] pre op clearance [id number] 02/15/2014 02/15/2014 [facility] pre op clearance [id number] 02/15/2014 02/15/2014 [facility] pre op clearance [id number] 02/15/2014 02/15/2014 [facility] pre op clearance [id number] 02/15/2014 02/15/2014 [facility] pre op clearance [id number] 02/15/2014 02/15/2014 [facility] pre op clearance [id number] 02/15/2014 02/15/2014 [facility] left shoulder pain [id number] 07/31/2015 07/31/2015 [facility] left shoulder pain [id number] 07/31/2015 07/31/2015 [facility] left shoulder pain [id number] 07/31/2015 07/31/2015 [facility] left shoulder pain [id number] 07/31/2015 07/31/2015 [facility] [place] [facility] Patients [id number] Eaton Abdul 01/31/2016 03/01/2016 [facility] [place] [facility] [id number] Eaton Abdul 03/26/2016 04/25/[address] [facility] [place] [facility] Patients [id number] Christopher Abdul 04/30/2016 05/30/2016 [facility] [place] [facility] [id number] Eaton Abdul 06/03/2016 07/03/2016 [facility] cough , sore throat and ears [id number] 06/09/2016 06/09/2016 [facility] cough , sore throat and ears [id number] 06/09/2016 06/09/2016 [facility] cough , sore throat and ears [id number] 06/09/2016 06/09/2016 [facility] physical & fbw [id number] 09/05/2016 09/05/2016 [facility] physical & fbw [id number] 09/05/2016 09/05/2016 [facility] DISCUSS RESULTS [id number] 09/22/2016 09/22/2016 [facility] Procedures Procedure Code Date Perfomer Comments Source
--- OUTSIDE RECORDS SUMMARY | 2018-06-29 12:54 | XMS REPORT ---
Author Author Stephie Cates [facility] eClinicalWorks Address Unknown Phone Unavailable Care Team Providers Care Reporting Coordinator Name Role Phone Stephie Cates Unavailable Allergies, Adverse Reactions, Alerts Substance Reaction Event Type Codeine Sulfate nausea Drug Allergy Encounters Encounter Location Date URINE [facility] Aug 04, [address] [facility] February 15, [address] [facility] Jul 18, [address] [facility] Aug 25, [address] 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 Problem Nicotine abuse 305.1 Active Assessment Other specified pre-operative examination V72.83 Active Medications Medication Code System Code Instructions Start Date End Date Status Dosage Tramadol & Dietary Manage Prod Unknown 0 50 mg Orally twice a day (bid) Active 1 capsule Methotrexate [facility] [address]-51 2.5 MG Orally Three times a Week Active 1 tablet Vitamin D [facility] [address]-26 2000 UNIT Orally Active as directed Folic Acid [facility] [address]-00 400 MCG Orally Once a day Active 1 tablet Ibuprofen [facility] [address]-88 800 MG Orally as needed (prn) Active 1 tablet Ambien [facility] [address]-78 10 mg Orally Once a day PRN Aug 04, 2013 Active 1 tablet at bedtime as needed Social History Social History Element Qualifiers Date [...] Father alive diabetes, hypertension February 15, 2014 Vital Signs Date/Time: February 15, 2014 Weight 200 lbs Height 70 in Temperature 98.7 F Cardiac Monitoring Heart Rate 64 /min Blood Pressure Diastolic 75 mm Hg Blood Pressure Systolic 112 mm Hg Results Urinalysis, Routine Urobilinogen,Semi-Qn(-0.0-1.9 mg/dL) 0.2 Bilirubin(-Negative ) Negative Urine-Color(-Yellow ) Yellow Appearance(-Clear ) Clear WBC Esterase(-Negative ) Negative Protein(-Negative/Trace ) Negative Glucose(-Negative ) Negative Ketones(-Negative ) Negative Specific [place](-1.005-1.030 ) 1.010 Occult Blood(-Negative ) Negative Microscopic Examination(- ) Comment pH(-5.0-7.5 ) 6.5 Nitrite, Urine(-Negative ) Negative CBC With Differential/Platelet Basos(-0-3 %) 0 MCV(-79-97 fL) 95 Hematocrit(-37.5-51.0 %) 39.9 Eos(-0-5 %) 7 MCHC(-31.5-35.7 g/dL) 34.3 Monocytes(-4-12 %) 11 MCH(-26.6-33.0 pg) 32.5 Lymphs(-14-46 %) 26 Eos (Absolute)(-0.0-0.4 x10E3/uL) 0.4 WBC(-3.4-10.8 x10E3/uL) 5.5 Monocytes(Absolute)(-0.1-0.9 x10E3/uL) 0.6 Lymphs (Absolute)(-0.7-3.1 x10E3/uL) 1.4 Hemoglobin(-12.6-17.7 g/dL) 13.7 Neutrophils (Absolute)(-1.4-7.0 x10E3/uL) 3.1 RBC(-4.14-5.80 x10E6/uL) 4.21 Immature Grans (Abs)(-0.0-0.1 x10E3/uL) 0.0 Immature Granulocytes(-0-2 %) 0 Neutrophils(-40-74 %) 56 Baso (Absolute)(-0.0-0.2 x10E3/uL) 0.0 RDW(-12.3-15.4 %) 14.5 Platelets(-155-379 x10E3/uL) 248 Chest 2 views- Xray EKG W/INTERP/ELECTR PT and PTT aPTT(-24-33 sec) 32 Prothrombin Time(-9.1-12.0 sec) 10.3 INR(-0.8-1.2 ) 1.0 Comp. Metabolic Panel (14) Creatinine, Serum(-0.76-1.27 mg/dL) 0.87 BUN(-8-27 mg/dL) 15 eGFR If Africn Am(- >59 mL/min/1.73) 108 eGFR If NonAfricn Am(- >59 mL/min/1.73) 93 Sodium, Serum(-134-144 mmol/L) 138 BUN/Creatinine Ratio(-10-22 ) 17 Chloride, Serum(-97-108 mmol/L) 101 Potassium, Serum(-3.5-5.2 mmol/L) 4.7 Carbon Dioxide, Total(-19-28 mmol/L) 26 Protein, Total, Serum(-6.0-8.5 g/dL) 6.3 Calcium, Serum(-8.6-10.2 mg/dL) 8.9 Globulin, Total(-1.5-4.5 g/dL) 2.0 Albumin, Serum(-3.6-4.8 g/dL) 4.3 Bilirubin, Total(-0.0-1.2 mg/dL) 0.5 Glucose, Serum(-65-99 mg/dL) 90 A/G Ratio(-1.1-2.5 ) 2.2 ALT (SGPT)(-0-44 IU/L) 14 Alkaline Phosphatase, S(-39-117 IU/L) 69 AST (SGOT)(-0-40 IU/L) 17 Summary Purpose eClinicalWorks Submission
--- OUTSIDE RECORDS SUMMARY | 2018-06-29 12:54 | XMS REPORT ---
Author Author Verena Hoover Organization eClinicalWorks Address Unknown Phone Unavailable Care Team Providers Care Bushing Press Operator Name Role Phone Verena Hoover Unavailable Allergies No Known Allergies Problems Problem Type Condition Code Onset Dates Condition Status Problem Primary osteoarthritis of left knee M17.12 Active Problem Uveitis H20.9 Active Problem Left shoulder pain M25.512 Active Problem Polymyalgia rheumatica M35.3 Active Medications No Known Medications Results No Known Results Summary Purpose eClinicalWorks Submission
--- OUTSIDE RECORDS SUMMARY | 2018-06-29 12:54 | XMS REPORT ---
Author Author Verena Hoover Organization eClinicalWorks Address Unknown Phone Unavailable Care Team Providers Care Order Worker Name Role Phone Verena Hoover CP Unavailable Allergies, Adverse Reactions, Alerts Substance Reaction Event Type Codeine Sulfate Info Not Available Drug Allergy Problems Problem Type Condition Code Onset Dates Condition Status Assessment Influenza vaccination administered at current visit Z23 Active Problem Primary osteoarthritis of left knee M17.12 Active Problem Uveitis H20.9 Active Problem Left shoulder pain M25.512 Active Assessment Uveitis H20.9 Active Assessment Primary osteoarthritis of left knee M17.12 Active Problem Polymyalgia rheumatica M35.3 Active Assessment Polymyalgia rheumatica M35.3 Active Medications Medication Code System Code Instructions Start Date End Date Status Dosage Celebrex ND 20774586718 200 MG Active TAKE 1 CAPSULE BY MOUTH ONCE A DAY FOR 90 DAYS Ibuprofen ND 26575866953 200 MG Orally PRN Active 1 tablet as needed Folic Acid ND 94585923932 400 MCG Orally Once a day Active 1 tablet Vitamin D ND 58053961325 2000 UNIT Orally Active as directed Vital Signs Date/Time: Nov 02, 2017 BMI 32.40 Index Weight 219.4 lbs Height 69 in Temperature 97.1 F Cardiac Monitoring Heart Rate 68 /min Blood Pressure Diastolic 76 mm Hg Blood Pressure Systolic 102 mm Hg Results No Known Results Immunizations Vaccine Administration Date Influenza Nov 02, 2017 Summary Purpose eClinicalWorks Submission
--- OUTSIDE RECORDS SUMMARY | 2018-06-29 12:54 | XMS REPORT ---
Author Author Imani Alexandre [facility] eClinicalWorks Address Unknown Phone Unavailable Care Team Providers Care Photogrammetric Stereo Compiler Name Role Phone Imani Alexandre Unavailable Allergies, Adverse Reactions, Alerts Substance Reaction Event Type Codeine Sulfate nausea Drug Allergy Encounters Encounter Location Date URINE [facility] Aug 04, 2013 pre op clearance [facility] February 15, 2014 NV/TDAP [facility] February 13, 2014 left shoulder pain [facility] Jul 31, 2015 knee [facility] Jul 18, 2013 Follow-Up [facility] Aug 25, 2013 Test results [facility] Aug 29, 2013 cough , sore throat and ears [facility] Jun 09, 2016 Problems Problem Type Condition ICD-9 Code Onset Dates Condition Status Assessment Bronchitis J40 Active Assessment Cough R05 Active Assessment Shortness of breath R06.02 Active Problem Osteoarthritis, unspecified osteoarthritis type, unspecified site M19.90 Active Problem 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 Problem Uveitis H20.9 Active Problem Gastroesophageal reflux disease, esophagitis presence not specified K21.9 Active Problem Tobacco use Z72.0 Active Problem Polymyalgia rheumatica M35.3 Active Problem 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 Medications Medication Code System Code Instructions Start Date End Date Status Dosage Bromfed DM [facility] [address]-58 30-2-10 MG/5ML Orally every 6 hrs Jun 09, 2016 Jun 19, 2016 Active 10 ml as needed ProAir HFA [facility] [address]-63 108 (90 Base) MCG/ACT Inhalation every 4 hrs Jun 09, 2016 Active 2 puffs as needed Levaquin [facility] [address]-99 500 mg Orally Once a day Jun 09, 2016 Jun 19, 2016 Active 1 tablet Celebrex [facility] [address]-17 200 MG Orally Once a day Active 1 capsule Medrol (Anthony) Unknown 0 4 mg Orally as directed Jun 09, 2016 Jun 15, 2016 Active as directed Folic Acid [facility] [address]-97 400 MCG Orally Once a day Active 1 tablet Tramadol & Dietary Manage Prod Unknown 0 50 mg Orally twice a day (bid) Active 1 capsule Ambien [facility] [address]-09 10 mg Orally Once a day PRN Aug 04, 2013 Active 1 tablet at bedtime as needed Methotrexate [facility] [address]-34 2.5 MG Orally Three times a Week Active 1 tablet Vitamin D [facility] [address]-66 2000 UNIT Orally Active as directed Social History Social History Element Qualifiers Date Reported Fall Risk: . 02/2014Jun 09, 2016 Depression Screening: . 02/2014Jun 09, 2016 Flu Vaccine: . 2014Jun 09, 2016 Last Bone Density: . 2011Jun 09, 2016 Last Colonoscopy: . 01/2014Jun 09, 2016 children . 2 Jun 09, 2016 Tobacco Use: . Are you a: current smoker rare- 2-4 cig/wk Jun 09, 2016 Marital Status: . Tia Jun 09, 2016 Do you drink alcohol? . 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
--- OUTSIDE RECORDS SUMMARY | 2018-06-29 12:54 | XMS REPORT ---
Author Author Jazmín Pulido [facility] eClinicalWorks Address Unknown Phone Unavailable Care Team Providers Care Slate Handler Name Role Phone Jazmín Pulido Unavailable Encounters Encounter Location Date knee [facility] Jul 18, [address] [facility] Aug 25, [address] 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 2 Aug 25, 2013 Tobacco Use: . Are you a: current smoker rare- 2-4 cig/wk Aug 25, 2013 Marital Status: . Tia Aug 25, 2013 Do you drink alcohol? . 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
--- OUTSIDE RECORDS SUMMARY | 2018-06-29 12:55 | XMS REPORT ---
Author Author Imani Alexandre [facility] eClinicalWorks Address Unknown Phone Unavailable Care Team Providers Care Roadway Designer Name Role Phone Imani Alexandre CP Unavailable Allergies, Adverse Reactions, Alerts Substance Reaction Event Type Codeine Sulfate nausea Drug Allergy Encounters Encounter Location Date URINE [facility] Aug 04, 2013 pre op clearance [facility] February 15, 2014 NV/TDAP [facility] February 13, 2014 left shoulder pain [facility] Jul 31, 2015 knee [facility] Jul 18, 2013 Follow-Up [facility] Aug 25, 2013 Test results [facility] Aug 29, 2013 cough , sore throat and ears [facility] Jun 09, 2016 physical & fbw [facility] Sep 05, 2016 Problems Problem Type Condition ICD-9 Code Onset Dates Condition Status Assessment Tobacco use Z72.0 Active Assessment Routine general medical examination at a health care facility Z00.00 Active Assessment Polymyalgia rheumatica M35.3 Active Problem Osteoarthritis, unspecified [...] Start Date End Date Status Dosage Celebrex [facility] [address]-73 200 MG Orally Once a day Active 1 capsule ProAir HFA [facility] [address]-21 108 (90 Base) MCG/ACT Inhalation every 4 hrs Jun 09, 2016 Active 2 puffs as needed Folic Acid [facility] [address]-68 400 MCG Orally Once a day Active 1 tablet Tramadol & Dietary Manage Prod Unknown 0 50 mg Orally twice a day (bid) Active 1 capsule Ambien [facility] [address]-09 10 mg Orally Once a day PRN Aug 04, 2013 Active 1 tablet at bedtime as needed Methotrexate [facility] [address]-10 2.5 MG Orally Three times a Week Active 1 tablet Vitamin D [facility] [address]-90 2000 UNIT Orally Active as directed Social History Social History Element Qualifiers Date Reported Fall Risk: . 02/2014Sep 05, 2016 Depression Screening: . 02/2014Sep 05, 2016 Flu Vaccine: . 2014Sep 05, 2016 Last Bone Density: . 2011Sep 05, 2016 Last Colonoscopy: . 01/2014Sep 05, 2016 children . 2 Sep 05, 2016 Tobacco Use: . Are you a: current smoker rare- 2-4 cig/wk Sep 05, 2016 Marital Status: . Tia Sep 05, 2016 Do you drink alcohol? . 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, 2016 Family history Qualifier Description Comment Date Reported Maternal Grandmother Comment not available Sep 05, 2016 Paternal Grandmother Comment not available Sep 05, 2016 Siblings Comment not available Sep 05, 2016 Maternal Grandfather Comment not available Sep 05, 2016 Children Comment not available Sep 05, 2016 Father alive diabetes, hypertension Sep 05, 2016 Paternal Grandfather Comment not available Sep 05, 2016 Mother Comment not available Sep 05, 2016 Other: Comment not available Sep 05, 2016 Vital Signs Date/Time: Sep 05, 2016 Weight 214 lbs Height 70 in Cardiac Monitoring Heart Rate 68 /min Blood Pressure Diastolic 77 mm Hg Blood Pressure Systolic 108 mm Hg Results Chest 2 views- Xray Urinalysis, Routine Summary Purpose eClinicalWorks Submission
--- OUTSIDE RECORDS SUMMARY | 2018-06-29 12:55 | XMS REPORT ---
Author Author Imani Alexandre [facility] eClinicalWorks Address Unknown Phone Unavailable Care Team Providers Care Claim Benefit Specialist Name Role Phone Imani Alexandre CP Unavailable Allergies, Adverse Reactions, Alerts Substance Reaction Event Type Codeine Sulfate nausea Drug Allergy Encounters Encounter Location Date URINE [facility] Aug 04, 2013 pre op clearance [facility] February 15, 2014 NV/TDAP [facility] February 13, 2014 left shoulder pain [facility] Jul 31, 2015 knee [facility] Jul 18, 2013 Follow-Up [facility] Aug 25, 2013 Test results [facility] Aug 29, 2013 DISCUSS RESULTS [facility] Sep 22, 2016 cough , sore throat and ears [facility] Jun 09, 2016 physical & fbw [facility] Sep 05, 2016 Problems Problem Type Condition ICD-9 Code Onset Dates Condition Status Assessment Pure hypercholesterolemia E78.00 Active Assessment Hyperkalemia E87.5 Active Problem Osteoarthritis, unspecified osteoarthritis type, unspecified [...] Instructions Start Date End Date Status Dosage Folic Acid [facility] [address]-66 400 MCG Orally Once a day Active 1 tablet Tramadol & Dietary Manage Prod Unknown 0 50 mg Orally twice a day (bid) Active 1 capsule Methotrexate [facility] [address]-56 2.5 MG Orally Three times a Week Active 1 tablet Vitamin D [facility] [address]-42 2000 UNIT Orally Active as directed Celebrex [facility] [address]-60 200 MG Orally Once a day Active 1 capsule Lam [facility] [address]-75 10 mg Orally Once a day PRN Aug 04, 2013 Active 1 tablet at bedtime as needed Rhianna MCKINNON [facility] [address]-50 108 (90 Base) MCG/ACT Inhalation every 4 hrs Jun 09, 2016 Active 2 puffs as needed Social History Social History Element Qualifiers Date Reported Fall Risk: . 02/2014Sep 22, 2016 Depression Screening: . 02/2014Sep 22, 2016 Flu Vaccine: . 2014Sep 22, 2016 Last Bone Density: . 2011Sep 22, 2016 Last Colonoscopy: . 01/2014Sep 22, 2016 children . 2 Sep 22, 2016 Tobacco Use: . Are you a: current smoker rare- 2-4 cig/wk Sep 22, 2016 Marital Status: . Tia Sep 22, 2016 Do you drink alcohol? . 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, 2016 Family history Qualifier Description Comment Date Reported Maternal Grandmother Comment not available Sep 22, 2016 Paternal Grandmother Comment not available Sep 22, 2016 Siblings Comment not available Sep 22, 2016 Maternal Grandfather Comment not available Sep 22, 2016 Children Comment not available Sep 22, 2016 Father alive diabetes, hypertension Sep 22, 2016 Paternal Grandfather Comment not available Sep 22, 2016 Mother Comment not available Sep 22, 2016 Other: Comment not available Sep 22, 2016 Vital Signs Date/Time: Sep 22, 2016 Weight 223 lbs Height 70 in Cardiac Monitoring Heart Rate 69 /min Blood Pressure Diastolic 70 mm Hg Blood Pressure Systolic 118 mm Hg Results Potassium, Serum Summary Purpose eClinicalWorks Submission
--- OUTSIDE RECORDS SUMMARY | 2018-06-29 12:55 | XMS REPORT ---
[facility] Address Unknown Phone Unavailable Care Team Providers Care Glass Worker Name Role Phone CALIXTO BRYANT Unavailable Unavailable Problems This patient has no known problems. Allergies, Adverse Reactions, Alerts This patient has no known allergies or adverse reactions. Medications This patient has no known medications. Results Test Description Test Time Test Comments Text Results Atomic Results Result Comments C-SPINE 2 VIEWS AP LATERAL 2018-06-25 08:11:00 [place] [address] Patient Name: CLIF CARNEY MR #: [id number] : 1950 Age/Sex: 67/M Req #: [id number] [facility] Physician: CALIXTO RBYANT MD Ordered by: CALIXTO BRYANT MD Report #: [id number] Location: MED/SURG Room/Bed: [facility] Procedure: [id number] DX/C-SPINE 2 VIEWS AP LATERAL Exam Date: 06/25/18 Exam Time: 0620 REPORT STATUS: Signed Cervical spine radiographs- 3 views HISTORY: Status post surgery. COMPARISON: MRI cervical spine 07/22/2012. FINDINGS: There are post surgical changes related to cervical fusion from C4-C5 with intervertebral body graft, and anterior plate and bilateral screws. There is additional fixation from C5-C7 with anterior plate and bilateral screw construct. Hardware appears grossly intact. Alignment is maintained. No evidence of fracture. Multilevel degenerative disc and facet degenerative changes. IMPRESSION: Post surgical changes status post cervical spin fixation as above. Intact hardware with unremarkable alignment. Signed by: Dr. Johana Bradford MD on 06/25/2018 8:46 AM Dictated By: JOHANA BRADFORD MD 5 Transcribed By: WALE on 06/25/18845 COPY TO: CALIXTO BRYANT MD CHEST 2 VIEWS 2018-06-23 08:57:00 [place] [address] Patient Name: CLIF CARNEY MR #: [id number] : 1950 Age/Sex: 67/M Req #: [id number] Adm Physician: Ordered by: CALIXTO BRYANT MD Report #: [id number] Location: OR Room/Bed: Procedure: [id number] DX/CHEST 2 VIEWS Exam Date: 06/23/18 Exam Time: 0810 REPORT STATUS: Signed PROCEDURE: X-RAY CHEST, TWO VIEWS COMPARISON: None. INDICATIONS: PRE OPERATIVE CHEST X-RAY FOR NECK SURGERY FINDINGS: LUNGS: No consolidations or edema. PLEURA: No effusions or pneumothorax. HEART T MEDIASTINUM: The heart is within normal size-limits. BONES T SOFT TISSUES: No acute findings. Blodgett screws overlie the right humeral head. Anterior compression plate with screws overlying the lower cervical spine. Mild degenerative changes of the lower thoracic spine. CONCLUSION: No acute thoracic abnormality. Dorinda Russell D.O. Dictated by: Dorinda Russell D.O. on 06/23/2018 at 8:57 Electronically approved by: Dorinda Russell D.O. on 06/23/2018 at 8:57 Dictated By: DORINDA RUSSELL DO 6 Transcribed By: IVORY on 06/23/18856 COPY TO: CALIXTO BRYANT MD
--- OUTSIDE RECORDS SUMMARY | 2018-06-29 12:55 | XMS REPORT | Summary of Care ---
Author Author [facility] Address Unknown Phone Unavailable Encounter HQ Luz Elena_laura(GARCIA) [id number] Date(s): 06/03/16 - 07/02/16 [facility] Discharge Disposition: Home or Self Care Attending Physician: Christopher Abdul MD Vital Signs No data available for this section Problem List No data available for this section Allergies, Adverse Reactions, Alerts No data available for this section Medications No data available for this section Results No data available for this section Immunizations No data available for this section Procedures No data available for this section Social History No data available for this section Assessment and Plan No data available for this section
--- OUTSIDE RECORDS SUMMARY | 2018-06-29 12:55 | XMS REPORT | Summary of Care ---
Author Author [facility] Address Unknown Phone Unavailable Encounter HQ Luz Elena_laura(GARCIA) [id number] Date(s): 04/30/16 - 05/29/16 [facility] Discharge Disposition: Home or Self Care [...]
--- OUTSIDE RECORDS SUMMARY | 2018-06-29 12:55 | XMS REPORT | Summary of Care ---
Author Author [facility] Address Unknown Phone Unavailable Encounter HQ Luz Elena_laura(GARCIA) [id number] Date(s): 01/31/16 - 02/29/16 [facility] Discharge Disposition: Home Attending Physician: Christopher Abdul MD Vital Signs [...]
--- OUTSIDE RECORDS SUMMARY | 2018-06-29 12:55 | XMS REPORT | Summary of Care ---
Author Author [facility] Address Unknown Phone Unavailable Encounter HQ Luz Elena_laura(GARCIA) [id number] Date(s): 03/26/16 - 04/24/16 [facility] Discharge Disposition: Home or Self [...]
== END 2018-06-25 10:23 | disposition home or self-care (01) ==
LOC: OR 05:53 → PACU V 09:26 → MED/SURG 10:29
PROVIDERS: ADMIT Neurological Surgery; ATTEND Neurological Surgery
DX: M50.121 Cervical disc disorder at C4-C5 level with radiculopathy (principal); M06.9 Rheumatoid arthritis, unspecified; M35.3 Polymyalgia rheumatica; Z01.810 Encounter for preprocedural cardiovascular examination; Z01.812 Encounter for preprocedural laboratory examination; Z01.811 Encounter for preprocedural respiratory examination
CPT/HCPCS: 20931; 22551; 22845; 36415 ×2; 71046; 72040; 77003; 80048; 84132; 85025; 85610; 85730; 86850; 86900; 88304; 93005; 96374; 96376; C1713 ×3; C9359; G0378 ×2; J0690 ×2; J1100; J1170; J1885; J2001 ×2; J2250; J2405; J3490; J7120

== ENCOUNTER 2024-10-05 13:44 | Inpatient (IN) | payer MEDICARE, OTHER ==
[~2024-10-05] VITALS: Ht 175.3 cm; Wt 98.0 kg
[~2024-10-05 13:44] MED LIST changes: +NORCO 7.5-3251 EACH PO
[2024-10-05 14:24] VITALS: TEMP 98.9
[2024-10-05 14:56] LABS: BASOPHILS % 0.2 % (0.0-1.0); EOSINOPHILS % 0.4 % (0.0-6.0); HEMATOCRIT 39.7 % (38.2-49.6); HEMOGLOBIN 12.1 g/dL (14.0-18.0); LYMPHOCYTES # (AUTO) 0.7 (1.0-3.2); LYMPHOCYTES % 6.3 % (18.0-39.1); MEAN CORPUSCULAR HGB CONC 30.5 g/dL (31-35); MEAN CORPUSCULAR VOLUME 95.2 fL (81-99); MONOCYTES # (AUTO) 0.8 (0.2-0.8); MONOCYTES % 7.8 % (4.4-11.3); NEUTROPHILS # (AUTO) 8.8 (2.1-6.9); NEUTROPHILS % 84.5 % (38.7-80.0); PLATELET COUNT 354 x10e3/uL (140-360); RED BLOOD COUNT 4.17 x10e6/uL (4.3-5.7); RED CELL DISTRIBUTION WIDTH 13.2 % (11.7-14.4); WHITE BLOOD COUNT 10.36 x10e3/uL (4.8-10.8)
[2024-10-05 15:22] LABS: ALBUMIN 2.5 g/dL (3.5-5.0); ALBUMIN/GLOBULIN RATIO 0.6 (0.8-2.0); ANION GAP 19.6 mmol/L (8-16); BILIRUBIN,TOTAL 0.6 mg/dL (0.2-1.2); CALCIUM 9.1 mg/dL (8.4-10.2); CREATININE, SERUM 0.87 mg/dL (0.72-1.25); POTASSIUM 3.6 mmol/L (3.5-5.1); TOTAL PROTEIN 6.7 g/dL (6.5-8.1)
[2024-10-05] MEDS ORDERED: IOPAMIDOL 370 MG/ML 100 ML INFUS..BTL INJ ONE (17:39)
[2024-10-05 18:30] VITALS: PULSE 86; RESP 20
[2024-10-05] MEDS ORDERED: SODIUM CHLORIDE FLUSH 10 ML SYR INJ PRN (18:30)
[2024-10-05] MEDS ORDERED: ONDANSETRON HCL INJ 2MG/ML 2ML 2 MG/ML VIAL IV PRN (18:30)
[2024-10-05] MEDS: VANCOMYCIN 1.25GM/250 ML (PEG) 250 ML IV SCH (18:58)
[2024-10-05 20:00] VITALS: BP 120/64; PULSE 86; RESP 20; TEMP 98.8; O2SAT 96
[2024-10-05 21:00] VITALS: BP 120/64; PULSE 86; RESP 20; TEMP 98.8; O2SAT 96
[2024-10-05] MEDS: CEFEPIME 2 GM in SODIUM CHLORIDE 0.9% 100 ML IV SCH (21:58)
[2024-10-06] VITALS (12 sets, daily range): BP systolic 104–123; BP diastolic 58–69; PULSE 72–91; RESP 18–20; TEMP 97.3–99; O2SAT 94–99
[2024-10-06] MEDS ORDERED: TYLENOL325 MG PO (11:53)
[2024-10-06] MEDS ORDERED: FOLIC ACID0.4 MG PO (11:53)
[2024-10-06] MEDS ORDERED: ENBREL25 MG/0.5 (11:53)
[2024-10-06] MEDS ORDERED: TAMSULOSIN PO (11:53)
[2024-10-06] MEDS ORDERED: TADALAFIL5 MG (11:53)
[2024-10-06] MEDS ORDERED: DOCUSATE SODIUM 100 MG CAP PO PRN (12:00)
[2024-10-06] MEDS ORDERED: SIMETHICONE 80 MG CHEW PO PRN (12:00)
[2024-10-06] MEDS ORDERED: METOPROLOL TARTRATE INJ 1 MG/ML VIAL IV PRN (12:00)
[2024-10-06] MEDS: ALBUTEROL/IPRATROPIUM 3 ML NEB NEB PRN (14:37)
[2024-10-06] MEDS: BENZONATATE 100 MG CAP PO SCH (16:39)
[2024-10-06] MEDS: FAMOTIDINE 20 MG TAB PO SCH (16:39)
[2024-10-06] MEDS: ENOXAPARIN SOD INJ 40 MG/0.4 ML SYR SC SCH (16:39)
[2024-10-06] MEDS: VANCOMYCIN 1.25GM/250 ML (PEG) 250 ML IV SCH (18:01)
[2024-10-06] MEDS: GUAIFENESIN/DEXTROMETHORPHAN LIQD 5 ML UDC NG PRN (21:04)
[2024-10-07] VITALS (11 sets, daily range): BP systolic 108–127; BP diastolic 49–85; PULSE 66–91; RESP 16–22; TEMP 97.7–99.2; O2SAT 92–100
[2024-10-07 06:22] LABS: BASOPHILS % 0.5 % (0.0-1.0); EOSINOPHILS # (AUTO) 0.2 (0.0-0.4); EOSINOPHILS % 3.3 % (0.0-6.0); HEMATOCRIT 34.4 % (38.2-49.6); LYMPHOCYTES # (AUTO) 0.6 (1.0-3.2); LYMPHOCYTES % 8.9 % (18.0-39.1); MEAN CORPUSCULAR HEMOGLOBIN 28.7 pg (28-32); MEAN CORPUSCULAR VOLUME 89.8 fL (81-99); MONOCYTES # (AUTO) 0.8 (0.2-0.8); MONOCYTES % 12.1 % (4.4-11.3); NEUTROPHILS # (AUTO) 4.8 (2.1-6.9); NEUTROPHILS % 74.6 % (38.7-80.0); PLATELET COUNT 450 x10e3/uL (140-360); RED BLOOD COUNT 3.83 x10e6/uL (4.3-5.7); RED CELL DISTRIBUTION WIDTH 13.4 % (11.7-14.4); WHITE BLOOD COUNT 6.44 x10e3/uL (4.8-10.8)
[2024-10-07 06:56] LABS: ANION GAP 14.4 mmol/L (8-16); CALCIUM 8.2 mg/dL (8.4-10.2); CREATININE, SERUM 0.66 mg/dL (0.72-1.25)
[2024-10-07 06:57] LABS: POTASSIUM 3.4 mmol/L (3.5-5.1)
[2024-10-07] MEDS: TAMSULOSIN HCL 0.4 MG CAP PO SCH (18:47)
[2024-10-07] MEDS: MELATONIN 3 MG TAB PO PRN (20:56)
[2024-10-08] VITALS (11 sets, daily range): BP systolic 106–123; BP diastolic 57–61; PULSE 75–84; RESP 16–21; TEMP 97.4–98.7; O2SAT 94–98
[2024-10-08 10:18] LABS: BASOPHILS % 0.3 % (0.0-1.0); EOSINOPHILS # (AUTO) 0.2 (0.0-0.4); EOSINOPHILS % 2.6 % (0.0-6.0); HEMATOCRIT 36.2 % (38.2-49.6); HEMOGLOBIN 10.9 g/dL (14.0-18.0); LYMPHOCYTES # (AUTO) 0.6 (1.0-3.2); MEAN CORPUSCULAR HEMOGLOBIN 28.5 pg (28-32); MEAN CORPUSCULAR HGB CONC 30.1 g/dL (31-35); MEAN CORPUSCULAR VOLUME 94.8 fL (81-99); MONOCYTES # (AUTO) 0.5 (0.2-0.8); MONOCYTES % 7.4 % (4.4-11.3); NEUTROPHILS # (AUTO) 4.9 (2.1-6.9); NEUTROPHILS % 78.4 % (38.7-80.0); PLATELET COUNT 513 x10e3/uL (140-360); RED BLOOD COUNT 3.82 x10e6/uL (4.3-5.7); RED CELL DISTRIBUTION WIDTH 13.4 % (11.7-14.4); WHITE BLOOD COUNT 6.19 x10e3/uL (4.8-10.8)
[2024-10-08 10:33] LABS: ANION GAP 14.5 mmol/L (8-16); CALCIUM 8.3 mg/dL (8.4-10.2); CREATININE, SERUM 0.59 mg/dL (0.72-1.25); POTASSIUM 3.5 mmol/L (3.5-5.1)
[2024-10-08] MEDS: FLUCONAZOLE 200 MG/100 ML 100 ML IV SCH (13:09)
[2024-10-08] MEDS: ACETAMINOPHEN 325 MG TAB PO PRN (21:31)
[2024-10-09] VITALS: BP_SYST 103; BP_SYST 116; BP_DIAS 57; BP_DIAS 77; PULSE 74; PULSE 77; RESP 17; RESP 20; TEMP 98; TEMP 98.6; O2SAT 96; O2SAT 97
[2024-10-09 04:25] VITALS: BP 130/72; PULSE 73; RESP 19; TEMP 98.4; O2SAT 96
[2024-10-09 06:05] VITALS: PULSE 74; RESP 20; O2SAT 98
[2024-10-09 06:29] LABS: BASOPHILS % 0.5 % (0.0-1.0); EOSINOPHILS # (AUTO) 0.3 (0.0-0.4); EOSINOPHILS % 4.3 % (0.0-6.0); HEMATOCRIT 35.8 % (38.2-49.6); HEMOGLOBIN 10.9 g/dL (14.0-18.0); LYMPHOCYTES # (AUTO) 0.7 (1.0-3.2); LYMPHOCYTES % 11.4 % (18.0-39.1); MEAN CORPUSCULAR HGB CONC 30.4 g/dL (31-35); MEAN CORPUSCULAR VOLUME 95.2 fL (81-99); MONOCYTES # (AUTO) 0.5 (0.2-0.8); MONOCYTES % 8.7 % (4.4-11.3); NEUTROPHILS # (AUTO) 4.5 (2.1-6.9); NEUTROPHILS % 73.8 % (38.7-80.0); PLATELET COUNT 551 x10e3/uL (140-360); RED BLOOD COUNT 3.76 x10e6/uL (4.3-5.7); RED CELL DISTRIBUTION WIDTH 13.4 % (11.7-14.4); WHITE BLOOD COUNT 6.07 x10e3/uL (4.8-10.8)
[2024-10-09 06:40] LABS: ANION GAP 14.5 mmol/L (8-16); CALCIUM 8.5 mg/dL (8.4-10.2); CREATININE, SERUM 0.57 mg/dL (0.72-1.25); POTASSIUM 3.5 mmol/L (3.5-5.1)
[2024-10-09 08:00] VITALS: BP 130/72; PULSE 75; RESP 20; TEMP 98.4; O2SAT 96
[2024-10-09 08:11] VITALS: BP 126/66; PULSE 68; RESP 18; TEMP 97.9; O2SAT 97
[2024-10-09] MEDS ORDERED: BENZONATATE100 MG PO (11:33)
[2024-10-09] MEDS ORDERED: FAMOTIDINE20 MG PO (11:33)
[2024-10-09] MEDS ORDERED: FLUCONAZOLE100 MG PO (11:33)
[2024-10-09] MEDS ORDERED: LORATADINE10 MG PO (11:33)
[2024-10-09] MEDS ORDERED: ZITHROMAX500 MG PO (11:33)
[2024-10-09 11:59] VITALS: BP 131/60; PULSE 80; RESP 19; TEMP 98.1; O2SAT 93
== END 2024-10-09 12:40 | disposition home or self-care (01) | DRG 177 ==
LOC: ER 14:23 → ERHOLD 18:24 → ER 19:53 → MED/SURG3 21:25 → OBSVTOIN 10-06 09:30
PROVIDERS: ADMIT Internal Medicine; ATTEND Internal Medicine
DX: B37.1 Pulmonary candidiasis (principal); J96.01 Acute respiratory failure with hypoxia; J90 Pleural effusion, not elsewhere classified; M35.3 Polymyalgia rheumatica; M06.9 Rheumatoid arthritis, unspecified; N40.0 Benign prostatic hyperplasia without lower urinary tract symptoms; R60.0 Localized edema; Z99.81 Dependence on supplemental oxygen; Z71.81 Spiritual or religious counseling; Z79.899 Other long term (current) drug therapy; Z88.5 Allergy status to narcotic agent
CPT/HCPCS: 36415; 71046; 71260; 80048; 80053; 80202; 83880; 84484; 85025; 85379; 87040; 87070; 87205; 93005; 94640; 94799; 99284; G0378; J0692; J1450; J1650; J7050; Q9967

== ENCOUNTER 2025-05-29 09:57 | Inpatient (IN) | payer MEDICARE, OTHER ==
[~2025-05-29] VITALS: Ht 175.3 cm; Wt 94.3 kg
[~2025-05-29 09:57] MED LIST changes: +BENZONATATE100 MG PO; +ENBREL25 MG/0.5; +FAMOTIDINE20 MG PO; +FLUCONAZOLE100 MG PO; +FOLIC ACID0.4 MG PO; +LORATADINE10 MG PO; +TADALAFIL5 MG; +TAMSULOSIN PO; +TYLENOL325 MG PO; +ZITHROMAX500 MG PO
[2025-05-29 11:24] LABS: BASOPHILS % 0.3 % (0.0-1.0); EOSINOPHILS % 0.3 % (0.0-6.0); LYMPHOCYTES % 9.9 % (18.0-39.1); MONOCYTES % 7.6 % (4.4-11.3); NEUTROPHILS % 81.5 % (38.7-80.0); RED CELL DISTRIBUTION WIDTH 12.6 % (11.7-14.4)
[2025-05-29 12:15] LABS: EST GLOMERULAR FILTRATION RATE 82 ML/MIN (>=60)
[2025-05-29] MEDS ORDERED: ONDANSETRON HCL INJ 2MG/ML 2ML 2 MG/ML VIAL IV PRN (13:30)
[2025-05-29] MEDS: KETOROLAC TROMETHAMINE 30 MG/ML VIAL IV PRN (18:23)
[2025-05-29 19:22] LABS: CORONAVIRUS COVID-19 AG NEGATIVE (NEGATIVE)
[2025-05-29] MEDS ORDERED: ACETAMINOPHEN 325 MG TAB PO PRN (19:30)
[2025-05-29] MEDS: ACETAMINOPHEN 325 MG TAB PO PRN (19:53)
[2025-05-29 21:23] VITALS: PULSE 85; RESP 22; TEMP 98.7
[2025-05-29 22:23] VITALS: BP 104/62; PULSE 78; RESP 20; TEMP 97.6; O2SAT 98
[2025-05-29] MEDS ORDERED: COMBIGAN EYE DRO5 ML OP (23:13)
[2025-05-29] MEDS ORDERED: SIMPONI AR50 MG/4 ML (23:13)
[2025-05-29] MEDS ORDERED: LOTEMAX3.5 GM (23:13)
[2025-05-29] MEDS ORDERED: PREDNISOLONE ACE5 M1 (23:13)
[2025-05-29] MEDS ORDERED: FLOMAX0.4 MG PO (23:13)
[2025-05-29] MEDS ORDERED: BLINK GEL TEARS10 ML (23:13)
[2025-05-29] MEDS ORDERED: ASPIRIN81 MG PO (23:13)
[2025-05-29] MEDS ORDERED: ARTHRITIS PAIN650 M3 (23:13)
[2025-05-29] MEDS ORDERED: OS-CAL 500+D T1 EACH PO (23:17)
[2025-05-29 23:20] VITALS: BP 116/71; PULSE 65; RESP 21; TEMP 98.7; O2SAT 98
[2025-05-29 23:21] VITALS: BP 116/71; PULSE 65; RESP 21; TEMP 98.7; O2SAT 98
[2025-05-29 23:23] VITALS: BP 116/71; PULSE 65; RESP 21; TEMP 98.7; O2SAT 98
[2025-05-29 23:27] VITALS: BP 116/71; PULSE 65; RESP 21; TEMP 98.7; O2SAT 98
[2025-05-30] VITALS (8 sets, daily range): BP systolic 107–117; BP diastolic 57–75; PULSE 60–80; RESP 18–20; TEMP 97.8–101; O2SAT 96–99
[2025-05-30 06:13] LABS: BASOPHILS % 0.1 % (0.0-1.0); EOSINOPHILS % 1.6 % (0.0-6.0); LYMPHOCYTES % 9.6 % (18.0-39.1); MONOCYTES % 11.8 % (4.4-11.3); NEUTROPHILS % 76.6 % (38.7-80.0); RED CELL DISTRIBUTION WIDTH 12.5 % (11.7-14.4)
[2025-05-30 07:06] LABS: EST GLOMERULAR FILTRATION RATE 83.0 ML/MIN (>=60)
[2025-05-30] MEDS: CLOPIDOGREL BISULFATE 75 MG TAB PO ONE (10:05)
[2025-05-30] MEDS: ASPIRIN 81 MG ENTERIC COATED PO SCH (10:05)
[2025-05-30] MEDS: SODIUM CHLORIDE 0.9% 1000ML 1,000 ML IV SCH (10:06)
[2025-05-30] MEDS ORDERED: IOPAMIDOL 370 MG/ML 100 ML INFUS..BTL INJ ONE (10:23)
[2025-05-30] MEDS: HYDROXYZINE PAMOATE 25 MG CAP PO PRN (18:29)
[2025-05-31] VITALS (10 sets, daily range): BP systolic 109–133; BP diastolic 60–71; PULSE 65–74; RESP 14–21; TEMP 98.1–99.9; O2SAT 96–99
[2025-05-31 06:57] LABS: BASOPHILS % 0.6 % (0.0-1.0); EOSINOPHILS % 2.3 % (0.0-6.0); LYMPHOCYTES % 18.2 % (18.0-39.1); MONOCYTES % 13.3 % (4.4-11.3); NEUTROPHILS % 65.2 % (38.7-80.0); RED CELL DISTRIBUTION WIDTH 12.5 % (11.7-14.4)
[2025-05-31 07:21] LABS: CHOL/HDL RATIO 4.8 (3.9-4.7); EST GLOMERULAR FILTRATION RATE 98.0 ML/MIN (>=60); LDL CHOLESTEROL 79.0 MG/DL (60-130)
[2025-05-31] MEDS: CLOPIDOGREL BISULFATE 75 MG TAB PO SCH (08:26)
[2025-05-31] MEDS: METOPROLOL SUCCINATE 25 MG TAB XL PO SCH (08:30)
[2025-05-31] MEDS ORDERED: REGADENOSON 0.4 MG/5 ML SYR IV ONE (11:10)
[2025-05-31] MEDS ORDERED: Morphine 2mg Syringe 2 MG/ML SYR IV PRN (13:45)
[2025-05-31] MEDS ORDERED: DIPHENHYDRAMINE HCL INJ 50 MG/ML VIAL IV PRN (14:45)
[2025-05-31] MEDS ORDERED: IOPAMIDOL 370 MG/ML 100 ML INFUS..BTL INJ ONE (19:33)
[2025-05-31] MEDS ORDERED: AMLODIPINE BESYLATE 5 MG TAB PO SCH (21:00)
[2025-06-01] VITALS (11 sets, daily range): BP systolic 103–119; BP diastolic 59–71; PULSE 60–75; RESP 18–20; TEMP 97.7–99.2; O2SAT 96–100
[2025-06-01 06:40] LABS: BASOPHILS % 0.4 % (0.0-1.0); EOSINOPHILS % 3.3 % (0.0-6.0); LYMPHOCYTES % 20.5 % (18.0-39.1); MONOCYTES % 13.1 % (4.4-11.3); NEUTROPHILS % 62.5 % (38.7-80.0); RED CELL DISTRIBUTION WIDTH 12.6 % (11.7-14.4)
[2025-06-01 06:57] LABS: EST GLOMERULAR FILTRATION RATE 99.0 ML/MIN (>=60)
[2025-06-02] VITALS (7 sets, daily range): BP systolic 101–125; BP diastolic 60–79; PULSE 61–78; RESP 18–20; TEMP 97.7–99.1; O2SAT 94–98
[2025-06-04 01:08] LABS: RHEUMATOID FACTOR 11.7 IU/mL (<14.0)
[2025-06-04 16:51] LABS: CYCLIC CITRULLINATED PEPTID AB 7.0 units (0-19)
== END 2025-06-02 15:11 | disposition home or self-care (01) | DRG 546 ==
LOC: ER 10:03 → ERHOLD 13:30 → MED/SURG3 22:31 → OBSVTOIN 05-31 08:02
PROVIDERS: ADMIT Internal Medicine; ATTEND Internal Medicine
DX: M06.9 Rheumatoid arthritis, unspecified (principal); D84.9 Immunodeficiency, unspecified; J90 Pleural effusion, not elsewhere classified; J98.11 Atelectasis; R07.89 Other chest pain; Z20.822 Contact with and (suspected) exposure to COVID-19; H26.9 Unspecified cataract; I25.10 Atherosclerotic heart disease of native coronary artery without angina pectoris; M79.10 Myalgia, unspecified site; N40.1 Benign prostatic hyperplasia with lower urinary tract symptoms; Z96.651 Presence of right artificial knee joint; Z96.641 Presence of right artificial hip joint; F41.9 Anxiety disorder, unspecified; R50.9 Fever, unspecified; K40.90 Unilateral inguinal hernia, without obstruction or gangrene, not specified as recurrent; K57.90 Diverticulosis of intestine, part unspecified, without perforation or abscess without bleeding; M35.3 Polymyalgia rheumatica; Z11.52 Encounter for screening for COVID-19; Z90.49 Acquired absence of other specified parts of digestive tract; Z79.891 Long term (current) use of opiate analgesic; Z79.82 Long term (current) use of aspirin; Z88.5 Allergy status to narcotic agent; Z72.0 Tobacco use; Z87.01 Personal history of pneumonia (recurrent)
CPT/HCPCS: 36415; 71045; 71260; 74177; 78452; 80048; 80053; 80061; 82550; 83690; 83735; 83880; 84443; 84484; 85025; 86140; 86200; 86431; 87040; 93005; 93017; 93306; 94799; 99252; 99284; A9502; G0378; J1885; J2543; J7030; Q0177; Q9967